=== PATIENT | female | born 1950 | race Caucasian/White ===

== ENCOUNTER → 2016-10-29 | Day surgery (SDC) | payer MEDICARE ==
[~2016-10-29] VITALS: Ht 160 cm; Wt 53.1 kg
[~2016-10-29] MED LIST: CIPRO500 MG PO; FLAGYL500 MG PO; HYDROCODONE BIT1 T11 PO
--- NOTE | ~2016-10-29 | PROC NOTE ---
[place], [place] PROCEDURE NOTE NAME: CHAPARRITA ROCK [facility] #: [id number] UNIT #: [id number] ROOM: DOCTOR: DON DAVIDSON MD BIRTHDATE: [birth year] DOS: 10/29/2016 PREOPERATIVE DIAGNOSIS: History of diverticulitis. POSTOPERATIVE DIAGNOSIS: Diverticulosis. PROCEDURE: Flexible sigmoidoscopy. 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 ANESTHESIA: MAC. INDICATIONS: This is a 65-year-old lady with a history of previous diverticulitis who is here for a colonoscopy. The procedure and its complications were explained to the patient in detail. Complications that were discussed included but were not limited to, bleeding, colon perforation, missed lesions and prolonged pain. She agreed to proceed. DESCRIPTION OF PROCEDURE: After identifying the patient, the patient was brought to the operating suite and laid in the left lateral position. After IV sedation was administered, a timeout procedure was called and a digital rectal exam was performed, which was within normal limits. An adult colonoscope was now introduced into the anal canal and advanced sequentially into the rectum and sigmoid colon where minimal diverticulosis could be visualized. Despite multiple efforts, the lumen could not be visualized in a safe fashion and the scope could not be advanced beyond approximately 35 cm from the anal verge. The scope was again tried to be reinserted when the patient was in a supine position and it was at the same spot that the scope could not be advanced beyond the 35 cm domenic. At this point, the scope was withdrawn and the patient was brought back to the recovery room in a stable fashion. There were no complications. A barium enema will be setup postprocedure for diagnosis. Don Davidson MD CM:PROCNOTE:PROCEDURE NOTE [id number] [id number] DON DAVIDSON MD
[2016-10-29 08:43] VITALS: BP 169/77
[2016-10-29 09:53] VITALS: BP 106/50
[2016-10-29 10:07] VITALS: BP 109/54
[2016-10-29 10:26] VITALS: BP 117/64
== END | disposition home or self-care (01) ==
LOC: SDC 10-18 08:45
DX: K57.30 Diverticulosis of large intestine without perforation or abscess without bleeding (principal); G43.909 Migraine, unspecified, not intractable, without status migrainosus; Z82.49 Family history of ischemic heart disease and other diseases of the circulatory system; Z90.710 Acquired absence of both cervix and uterus; Z53.8 Procedure and treatment not carried out for other reasons

== ENCOUNTER 2017-02-13 12:50 | Inpatient (IN) | payer MEDICARE ==
[~2017-02-13] VITALS: Ht 160 cm; Wt 58.5 kg
[2017-02-13] VITALS (8 sets, daily range): BP systolic 122–155; BP diastolic 56–87
[2017-02-13 13:29] LABS: HEMATOCRIT 35.7 % (37.0-47.0); HEMOGLOBIN 12.3 g/dl (12.0-16.0); MEAN CELL VOLUME 89.7 fl (81.0-99.0); MEAN CORPUSCULAR HGB 30.9 pg (27.0-31.0); MEAN CORPUSCULAR HGB CONC 34.5 g/dl (33.0-37.0); MEAN PLATELET VOLUME 10.8 fl (9.6-12.3); PLATELET COUNT AUTOMATED 203 10*3/uL (130-400); RED BLOOD COUNT 3.98 10*6/uL (4.10-5.10); RED CELL DISTRI WIDTH 11.9 % (0-14.5)
[2017-02-13 13:45] LABS: ALBUMIN 2.7 gm/dl (3.1-4.5); ALKALINE PHOSPHATASE 192 U/L (45-117); BILIRUBIN, TOTAL 1.2 mg/dl (0.2-1.0); BUN 11 mg/dl (7-24); CARBON DIOXIDE 23 mmol/L (21-32); CHLORIDE 97 mmol/L (98-107); EST GLOM FILT AFRICAN AMERICAN > 60 ml/min; GLUCOSE 231 mg/dL (65-99); POTASSIUM 2.8 mmol/L (3.5-5.1); SGOT/AST 183 IU/L (3-35); SGPT/ALT 228 U/L (12-78); SODIUM 130 mmol/L (136-145); TOTAL PROTEIN 6.6 gm/dL (6.4-8.2)
[2017-02-13 13:48] LABS: LYMPHOCYTE # 0.4 10*3/uL (1.3-4.4); MONOCYTE # 0.4 10*3/uL (0.1-1.0); NEUTROPHIL # 8.3 10*3/uL (2.3-7.9); NEUTROPHILS 92 % (47-73); PLATELET SUFFICIENCY NORMAL (NORMAL); TOTAL CELLS COUNTED 100 #CELLS
[2017-02-13 15:27] LABS: LA>2 REFLEX 2 HR DRAW NOW
[2017-02-13 15:51] LABS: LA>2 RFLX FOLLOW UP AT 2 HRS 2.3 mmol/L (0.4-2.0)
[2017-02-13 16:39] LABS: BILIRUBIN NEGATIVE (NEGATIVE); BLOOD 2+ (NEGATIVE); CLARITY SL CLOUDY (CLEAR); COLOR YELLOW (YELLOW); GLUCOSE 1+ (NEGATIVE); KETONE NEGATIVE (NEGATIVE); LEUKO ESTERASE 1+ (NEGATIVE); NITRITE NEGATIVE (NEGATIVE); PH 5.5 (5.0-9.0); PROTEIN 1+ (NEGATIVE); SPECIFIC GRAVITY <= 1.005 (1.005-1.030)
[2017-02-13 16:48] LABS: BACTERIA 2+; URINE REFLEX COMMENT YES (NO)
[2017-02-13 16:50] LABS: RBC 16-20 rbc/hpf (0-2); WBC 51-100 wbc/hpf (0-5)
[2017-02-13 17:44] LABS: LA>2 REFLEX 4 HR DRAW NOW
[2017-02-14] VITALS: BP 144/90
[2017-02-14 03:00] VITALS: BP 120/70
[2017-02-14 06:43] LABS: HEMATOCRIT 31.8 % (37.0-47.0); HEMOGLOBIN 10.6 g/dl (12.0-16.0); MEAN CELL VOLUME 91.4 fl (81.0-99.0); MEAN CORPUSCULAR HGB 30.5 pg (27.0-31.0); MEAN CORPUSCULAR HGB CONC 33.3 g/dl (33.0-37.0); MEAN PLATELET VOLUME 10.9 fl (9.6-12.3); PLATELET COUNT AUTOMATED 179 10*3/uL (130-400); RED BLOOD COUNT 3.48 10*6/uL (4.10-5.10); RED CELL DISTRI WIDTH 12.3 % (0-14.5); WHITE BLOOD COUNT 4.2 10*3/uL (4.8-10.8)
[2017-02-14 07:03] LABS: ALKALINE PHOSPHATASE 113 U/L (45-117); BILIRUBIN, TOTAL 0.8 mg/dl (0.2-1.0); BUN 10 mg/dl (7-24); CARBON DIOXIDE 22 mmol/L (21-32); CHLORIDE 108 mmol/L (98-107); CHOLESTEROL 64 mg/dL (<200); EST GLOM FILT AFRICAN AMERICAN > 60 ml/min; GLUCOSE 140 mg/dL (65-99); HDL CHOLESTEROL 35 mg/dl (40-60); LDL CHOLESTEROL 22 mg/dL (9-159); MAGNESIUM 1.5 mg/dL (1.5-2.1); PHOSPHOROUS 2.1 mg/dL (2.5-4.9); POTASSIUM 3.5 mmol/L (3.5-5.1); SGOT/AST 50 IU/L (3-35); SGPT/ALT 132 U/L (12-78); SODIUM 140 mmol/L (136-145); TOTAL PROTEIN 5.1 gm/dL (6.4-8.2); TRIGLYCERIDES 35 mg/dl (<150); VLDL CHOLESTEROL 7 mg/dL (6-40)
[2017-02-14 07:09] LABS: THYROID STIM HORMONE (HS) 0.472 uIU/ml (0.358-4.75)
[2017-02-14 07:18] LABS: LYMPHOCYTE # 0.3 10*3/uL (1.3-4.4); METAMYELOCYTES 1 % (0-0); MONOCYTE # 0.2 10*3/uL (0.1-1.0); NEUTROPHIL # 3.7 10*3/uL (2.3-7.9); NEUTROPHILS 87 % (47-73); PLATELET SUFFICIENCY NORMAL (NORMAL); TOTAL CELLS COUNTED 100 #CELLS
[2017-02-14 07:23] LABS: HEMOGLOBIN A1c 5.4 % (4.8-5.6)
[2017-02-14 08:00] VITALS: BP 140/66
[2017-02-14 08:05] LABS: FOLIC ACID 11.3 ng/mL (>5.38); VITAMIN D, 25-HYDROXY 12.9 ng/mL (30-100)
[2017-02-14 12:00] VITALS: BP 149/70
[2017-02-14 16:00] VITALS: BP 149/72
[2017-02-14] MEDS ORDERED: FEVER REDUCER650 MG R (16:12)
[2017-02-14] MEDS ORDERED: KETOROLAC TR15 MG/M1 IV (16:12)
[2017-02-14] MEDS ORDERED: ONDANSETRON H2 MG/ML IV (16:12)
[2017-02-14] MEDS ORDERED: HYDROMORPH0.5 MG/0.5 IV (16:12)
[2017-02-14] MEDS ORDERED: ZOSYN 50 ML50 ML IV (16:12)
[2017-02-14 20:00] VITALS: BP 137/78
== END 2017-02-14 20:46 | disposition short-term general hospital (02) | DRG 871 ==
LOC: ED 12:50 → 4E 15:37 → EDHOLD 15:37 → 4E 15:48
PROVIDERS: Internal Medicine; Registered Nurse
DX: A41.9 Sepsis, unspecified organism (principal); E43 Unspecified severe protein-calorie malnutrition; K57.20 Diverticulitis of large intestine with perforation and abscess without bleeding; E87.1 Hypo-osmolality and hyponatremia; E87.8 Other disorders of electrolyte and fluid balance, not elsewhere classified; N12 Tubulo-interstitial nephritis, not specified as acute or chronic; R65.20 Severe sepsis without septic shock; E87.6 Hypokalemia; D72.810 Lymphocytopenia; R73.9 Hyperglycemia, unspecified; E80.6 Other disorders of bilirubin metabolism; Z68.22 Body mass index [BMI] 22.0-22.9, adult; Z82.49 Family history of ischemic heart disease and other diseases of the circulatory system

== ENCOUNTER → 2017-11-30 | Outpatient (CLI) | payer MEDICARE ==
[~2017-11-30] MED LIST changes: +FEVER REDUCER650 MG R; +HYDROMORPH0.5 MG/0.5 IV; +KETOROLAC TR15 MG/M1 IV; +ONDANSETRON H2 MG/ML IV; +ZOSYN 50 ML50 ML IV
== END ==
LOC: MAMMO 11-09 08:40
DX: Z12.31 Encounter for screening mammogram for malignant neoplasm of breast (principal)

== ENCOUNTER → 2021-11-23 | Outpatient (CLI) | payer MEDICARE | END | disposition home or self-care (01) | LOC: MAMMO 11:21 | PROVIDERS: ATTEND Family Medicine | DX: Z12.31 Encounter for screening mammogram for malignant neoplasm of breast (principal) ==

== ENCOUNTER → 2021-12-02 | Outpatient (CLI) | payer MEDICARE | END | disposition home or self-care (01) | LOC: RAD 13:36 | PROVIDERS: ATTEND Family Medicine | DX: Z13.820 Encounter for screening for osteoporosis (principal); M54.9 Dorsalgia, unspecified; R53.83 Other fatigue; Z78.0 Asymptomatic menopausal state ==

== ENCOUNTER → 2023-09-14 | Outpatient (CLI) | payer MEDICARE ==
[~2023-09-14] MED LIST changes: +AMOX-CLAV 875-1 EACH PO; +ZOLOFT25 MG PO
== END | disposition home or self-care (01) ==
LOC: MRI 09-13 09:00
PROVIDERS: ATTEND Family Medicine
DX: M51.37 Other intervertebral disc degeneration, lumbosacral region (principal); M47.817 Spondylosis without myelopathy or radiculopathy, lumbosacral region; M48.07 Spinal stenosis, lumbosacral region; R32 Unspecified urinary incontinence; M54.9 Dorsalgia, unspecified; R26.89 Other abnormalities of gait and mobility; K57.30 Diverticulosis of large intestine without perforation or abscess without bleeding; M41.86 Other forms of scoliosis, lumbar region; Z93.3 Colostomy status; Z51.81 Encounter for therapeutic drug level monitoring; Z91.81 History of falling; Z87.19 Personal history of other diseases of the digestive system

== ENCOUNTER 2023-11-21 08:52 | Emergency (ER) | payer MEDICARE ==
[~2023-11-21] VITALS: Ht 157.4 cm; Wt 56.7 kg
[2023-11-21 09:38] LABS: BASO % 0.5 % (0.0-1.0); EOS % 0.7 % (1.0-4.0); HEMATOCRIT 44.5 % (37.0-47.0); LYMPH # 1.8 10*3/uL (1.3-4.4); LYMPH % 30.5 % (27.0-41.0); MEAN CELL VOLUME 94.3 fl (81.0-99.0); MEAN CORPUSCULAR HGB 31.6 pg (27.0-31.0); MEAN CORPUSCULAR HGB CONC 33.5 g/dl (33.0-37.0); MEAN PLATELET VOLUME 10.5 fl (9.6-12.3); MONO # 0.4 10*3/uL (0.1-1.0); MONO % 6.8 % (3.0-9.0); NEUT # 3.6 10*3/uL (2.3-7.9); NEUT % 61.3 % (47.0-73.0); PLATELET COUNT AUTOMATED 262 10*3/uL (130-400); RED BLOOD COUNT 4.72 10*6/uL (4.10-5.10); RED CELL DISTRI WIDTH 12.1 % (0-14.5); WHITE BLOOD COUNT 5.9 10*3/uL (4.8-10.8)
[2023-11-21 09:54] LABS: ACT PARTIAL THROMBO TIME 29.1 SECONDS (20.0-32.1)
[2023-11-21 10:02] LABS: ALKALINE PHOSPHATASE 51 U/L (46-116); BUN 9 mg/dl (9-23); CHLORIDE 107 mmol/L (98-107); LIPASE 57 U/L (12-53); POTASSIUM 4.1 mmol/L (3.4-5.1); SGPT/ALT 9 U/L (5-49); TOTAL PROTEIN 6.7 gm/dL (6.0-8.0)
[2023-11-21] MEDS ORDERED: SODIUM CHLORIDE 0.9% 1,000 ML IV ONE (11:05)
[2023-11-21] MEDS ORDERED: Meclizine Hydrochloride 25 MG TAB PO ONE (11:05)
[2023-11-21] MEDS ORDERED: MECLIZINE HCL25 M2 PO (12:44)
[2023-11-21 13:01] VITALS: BP 170/91
== END 2023-11-21 12:55 | disposition home or self-care (01) ==
LOC: ED 08:52
PROVIDERS: Internal Medicine
DX: H81.10 Benign paroxysmal vertigo, unspecified ear (principal); R11.2 Nausea with vomiting, unspecified; Z90.711 Acquired absence of uterus with remaining cervical stump; Z90.89 Acquired absence of other organs; Z98.890 Other specified postprocedural states